=== PATIENT | female | born 1960 | race Caucasian/White ===

== ENCOUNTER 2017-03-04 17:59 | Emergency (ER) | payer MEDICAID ==
[2017-03-04 18:18] VITALS: BP 148/103
--- NOTE | 2017-03-04 19:18 | EDM.PDOC ---
ED HPI GENERAL MEDICAL PROBLEM - General Chief Complaint: Abdominal Pain Stated Complaint: ABDOMINAL PAIN Time Seen by Provider: 03/04/17 19:05 Source of Information: Reports: Patient, RN Notes Reviewed - History of Present Illness INITIAL COMMENTS - FREE TEXT/NARRATIVE: 56 year old female traveling, upper and lower abd pain, chronic. Has had recent endoscopy, colonoscopy. Has papers that show gastritis, colonic stenosis , many prior surgeries. Not vomiting. Loose stools, on omeprazole. Abdominal Pain Score (Numeric/FACES): 10 - Related Data Allergies Allergy/AdvReac Type Severity Reaction Status Date / Time No Known Allergies Allergy Verified 03/04/17 18:18 Home Meds: Home Meds Hydrocodone/Acetaminophen [[place] 5-325] 1 tab PO Q6HR PRN #10 tablet 03/04/17 [ Rx] Levothyroxine Sodium [Synthroid] 75 mcg PO DAILY 03/04/17 [History] Omeprazole 40 mg PO DAILY 03/04/17 [History] Sucralfate [Carafate] 1 gm PO QID #20 tablet 03/04/17 [Rx] Past Medical History - Past Surgical History GI Surgical History: Reports: Colonoscopy, EGD Social & Family History - Tobacco Use Smoking Status *Q: Never Smoker - Caffeine Use Caffeine Use: Reports: None - Recreational Drug Use Recreational Drug Use: No ED ROS GENERAL - Review of Systems Review Of Systems: See Below Constitutional: Denies: Fever, Chills, Diaphoresis HEENT: Reports: No Symptoms Respiratory: Denies: Shortness of Breath Cardiovascular: Denies: Chest Pain GI/Abdominal: Reports: Abdominal Pain, Diarrhea, Nausea. Denies: Hematochezia, Melena, Vomiting Musculoskeletal: Reports: No Symptoms Skin: Reports: No Symptoms Neurological: Reports: No Symptoms ED EXAM, GI/ABD - Physical Exam Exam: See Below General Appearance: Alert, Mild Distress Throat/Mouth: Normal Inspection, Normal Oropharynx Head: Atraumatic. No: Facial Swelling Neck: Supple Respiratory/Chest: No Respiratory Distress, Lungs Clear, Normal Breath Sounds, No Accessory Muscle Use Cardiovascular: Regular Rate, Rhythm GI/Abdominal Exam: Soft, Tender (mild tenderness upper mid abd, mild tenderness lower abd, mult. surgical scars upper and lower abd. ). No: Guarding, Rebound Back Exam: No: CVA Tenderness (L), CVA Tenderness (R) Extremities: Normal Inspection, Normal Range of Motion. No: Pedal Edema, Leg Pain Neurological: Alert, Oriented, No Motor/Sensory Deficits Course - Vital Signs Last Recorded V/S: Last Vital Signs Temp 97.4 F 03/04/17 18:13 Pulse 96 03/04/17 18:13 Resp 16 03/04/17 18:13 BP 148/103 H 03/04/17 18:13 Pulse Ox 97 03/04/17 18:13 Departure - Departure Time of Disposition: 19:14 Disposition: Home, Self-Care 01 Condition: Fair Clinical Impression: Abdominal pain Qualifiers: Abdominal location: generalized Qualified Code(s): R10.84 - Generalized abdominal pain Gastritis Qualifiers: Gastritis type: unspecified gastritis Chronicity: chronic Gastritis bleeding: without bleeding Qualified Code(s): K29.50 - Unspecified chronic gastritis without bleeding - Discharge Information Prescriptions: Hydrocodone/Acetaminophen [[place] 5-325] 1 tab PO Q6HR PRN #10 tablet PRN Reason: Pain Sucralfate [Carafate] 1 gm PO QID #20 tablet Instructions: Gastritis, Adult, [id number], Abdominal Pain, Adult, Easy-to- Read Referrals: PCP,Not In Area [Primary Care Provider] - Forms: ED Department Discharge Additional Instructions: carafate 1 gram 4 times daily to coat your stomach, help it be less painful, continue omeprazole as prescribed, begin probiotic available OTC, take that twice daily, tylenol for mild pain, hydrocodone if needed for more severe pain. See your Dr when you get back home.
== END 2017-03-04 19:28 | disposition home or self-care (01) ==
LOC: JD.ED 17:59
DX: K29.50 Unspecified chronic gastritis without bleeding (principal); R10.84 Generalized abdominal pain; Z79.899 Other long term (current) drug therapy
CPT/HCPCS: 99283; 99284